=== PATIENT | male | born 1950 | race Caucasian/White ===

== ENCOUNTER 2016-11-27 12:04 | Outpatient (CLI) | payer OTHER, MEDICARE | END 2016-11-27 12:05 | disposition home or self-care (01) | DX: C61 Malignant neoplasm of prostate (principal) ==

== ENCOUNTER 2018-03-28 09:44 | Outpatient (CLI) | payer OTHER | END 2018-03-28 09:45 | disposition home or self-care (01) | LOC: LAB 09:44 | PROVIDERS: ATTEND Urology | DX: C61 Malignant neoplasm of prostate (principal) | CPT/HCPCS: 36415; 84153 ==

== ENCOUNTER 2019-08-26 12:00 | Outpatient (CLI) | payer OTHER ==
[2019-08-26 12:44] LABS: BASOPHILS % (AUTO) 0.5 %; EOSINOPHILS # (AUTO) 0.1 10^3/uL (0.0-0.7); EOSINOPHILS % (AUTO) 1.3 %; HGB - HEMOGLOBIN 13.7 g/dL (14.0-18.0); LYMPHOCYTES # (AUTO) 1.1 10^3/uL (1.5-3.5); LYMPHOCYTES % (AUTO) 13.3 %; MEAN CORPUSCULAR HEMOGLOBIN 29.4 pg (27.0-31.0); MEAN CORPUSCULAR HGB CONC 32.7 g/dL (32.0-36.0); MEAN CORPUSCULAR VOLUME 89.9 fL (80.0-94.0); MEAN PLATELET VOLUME 10.7 fL (7.4-11.4); MONOCYTES # (AUTO) 0.5 10^3/uL (0.0-1.0); MONOCYTES % (AUTO) 6.2 %; NEUTROPHILS # (AUTO) 6.5 10^3/uL (1.5-6.6); NEUTROPHILS % (AUTO) 78.3 %; PLT - PLATELET COUNT 237 10^3/uL (130-450); RED BLOOD COUNT 4.66 10^6/uL (4.70-6.10); RED CELL DISTRIBUTION WIDTH 13.1 % (12.0-15.0); WHITE BLOOD COUNT 8.3 x10^3/uL (4.8-10.8)
[2019-08-26 12:54] LABS: ALBUMIN/GLOBULIN RATIO 1.4 (1.0-2.2); BILIRUBIN,TOTAL 0.7 mg/dL (0.2-1.0); CALCIUM 9.3 mg/dL (8.5-10.3); CREATININE 1.4 mg/dL (0.6-1.2); TOTAL PROTEIN 6.9 g/dL (6.7-8.2)
--- NOTE | 2019-08-26 16:13 | XRAY Report ---
Reason: DYSPNEA Procedure Date: 08/26/2019 Accession Number: [id number] / [id number] Procedure: XR - Chest 2 View X-Ray CPT Code: 31913 Final Report FULL RESULT: EXAM: CHEST RADIOGRAPHY EXAM DATE: 08/26/2019 01:46 PM. CLINICAL HISTORY: DYSPNEA. COMPARISON: 01/01/2014 5:59 AM. TECHNIQUE: 2 views. FINDINGS: Lungs/Pleura: Linear atelectasis or scarring left lung base No focal opacities evident. No pleural effusion. No pneumothorax. Normal volumes. Mediastinum: Heart and mediastinal contours are unremarkable. Other: DJD spine. Mild wedging thoracic vertebral bodies. IMPRESSION: No active cardiopulmonary disease RADIA
== END 2019-08-26 12:01 | disposition home or self-care (01) ==
LOC: LAB 12:00 → DI 12:01
PROVIDERS: ATTEND Internal Medicine
DX: R06.00 Dyspnea, unspecified (principal); R11.0 Nausea; C61 Malignant neoplasm of prostate; R19.7 Diarrhea, unspecified; Z82.49 Family history of ischemic heart disease and other diseases of the circulatory system
CPT/HCPCS: 36415; 71046; 80053; 83880; 85025; 85379

== ENCOUNTER 2019-11-06 13:12 | Outpatient (CLI) | payer OTHER | END 2019-11-06 13:13 | disposition home or self-care (01) | LOC: LAB 13:12 | PROVIDERS: ATTEND Radiology Radiation Oncology | DX: C61 Malignant neoplasm of prostate (principal) | CPT/HCPCS: 36415; 84153 ==

== ENCOUNTER 2020-05-07 14:55 | Outpatient (CLI) | payer OTHER | END 2020-05-07 14:56 | disposition home or self-care (01) | LOC: LAB 14:55 | PROVIDERS: ATTEND Radiology Radiation Oncology | DX: C61 Malignant neoplasm of prostate (principal) | CPT/HCPCS: 36415; 84153 ==